=== PATIENT | female | born 1970 ===

== ENCOUNTER 2018-10-22 02:47 | Emergency (ER) | payer SELFPAY ==
[2018-10-22 02:56] VITALS: BP 98/66; BMI 28.3
[2018-10-22] MEDS ORDERED: ONDANSETRON 4 MG/2 ML VIAL IVPUSH ONE (03:27)
[2018-10-22] MEDS ORDERED: ACETAMINOPHEN 1000 MG/100 ML VIAL (NON FORMULARY) IVPB ONE (03:27)
[2018-10-22] MEDS ORDERED: ACETAMINOPHEN INJECTION 100 ML IVPB ONE (03:29)
[2018-10-22] MEDS ORDERED: ONDANSETRON 4 MG/2 ML VIAL ONE (03:29)
[2018-10-22] MEDS ORDERED: SODIUM CHLORIDE 1,000 ML IV STA (03:31)
--- NOTE | 2018-10-22 03:32 | PDOC ---
History of Present Illness - General Chief Complaint: Nausea/Vomiting Stated Complaint: FEVER/NAUSEA Time Seen by Provider: 10/22/18 02:49 - History of Present Illness Initial Comments: 10/22/18 03:31 This 48-year-old woman with a history of depression but no other significant chronic medical condition presents with a few day history of fever/vomiting/ diarrhea/nonproductive cough. Patient was seen in urgent care 2 days ago and Tamiflu was started empirically (quick strep and rapid influenza testing were both negative). Patient describes fever as high as 104.5F over the last few days, despite taking intermittent Tylenol. Patient admits that because of her frequent vomiting, the Tylenol tablets were frequently vomited. She has also had several episodes of diarrhea(no blood or mucus) per day since start of the illness. Cough has been nonproductive and mild. She has had intermittent generalized headache;no stiff neck. No history of shortness of breath or wheezing. 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) Past History - Past Medical History Allergies/Adverse Reactions: Allergies Allergy/AdvReac Type Severity Reaction Status Date / Time Penicillins Allergy Unverified 08/26/13 12:25 Sulfa (Sulfonamide Allergy Verified 10/22/18 02:49 Antibiotics) Home Medications: Ambulatory Orders Alprazolam [Xanax] 0.25 mg PO TID #15 tablet 08/26/13 Escitalopram Oxalate [Lexapro] 20 mg PO DAILY #7 tablet 08/26/13 Ondansetron [Zofran Odt -] 4 mg SL TID PRN #9 od.tablet 10/22/18 Oseltamivir Phosphate [Tamiflu] 75 mg PO BID 10/22/18 Trazodone HCl 10/22/18 COPD: No Psychiatric Problems: Yes - Suicide/Smoking/Psychosocial Hx Smoking History: Never smoked Review of Systems - Review of Systems Able to Perform ROS?: Yes Comments:: 12 point review of systems is negative except for what is noted in the history of present illness *Physical Exam - Vital Signs Last Vital Signs Temp Pulse Resp BP Pulse Ox 101 F H 112 H 18 98/66 95 10/22/18 02:52 10/22/18 02:52 10/22/18 02:52 10/22/18 02:52 10/22/18 02:52 - Physical Exam Comments: GENERAL:adult female, alert and oriented 3, in mild distress secondary to nausea/headache HEAD: Normal with no signs of trauma. EYES: PERRLA, EOMI, sclera anicteric, conjunctiva clear. ENT: Ears normal, nares patent, oropharynx clear without exudates. Dry mucous membranes. NECK: Normal range of motion, supple without lymphadenopathy, JVD, or masses. LUNGS: Breath sounds equal, clear to auscultation bilaterally. No wheezes, and no crackles. HEART:Regular rate and rhythm, normal S1 and S2 without murmur, rub or gallop. ABDOMEN:.normal bowel sounds No guarding,tenderness or rebound.No masses No distention. EXTREMITIES: Normal range of motion, no edema. No clubbing or cyanosis. No erythema, or tenderness. NEUROLOGICAL: Cranial nerves II through XII grossly intact. Normal speech. No focal neurological deficits. MUSCULOSKELETAL: Back non-tender to palpation, no CVA tenderness SKIN: Warm, Dry, normal turgor, no rashes or lesions noted. Progress Note - Progress Note Progress Note: Patient much improved after 2 L of normal saline, 1 g acetaminophen IV and 4 mg of Zofran IV. Patient states her headache is much improved, her nausea is resolved and she has no new symptoms. Patient will be discharged with instructions to continue clear liquids and advance diet very cautiously. Prescription for Zofran ODT, 4 mg to be used up to 3 times a day as needed for recurrent nausea has been sent to her pharmacy. She should return to the ER if she has any persistent vomiting or increased abdominal pain/high fever. She should follow-up with her own doctor within the next 5 days. *DC/Admit/Observation/Transfer Diagnosis at time of Disposition: Gastroenteritis - Discharge Dispostion Disposition: HOME Condition at time of disposition: Stable - Prescriptions Prescriptions: Ondansetron [Zofran Odt -] 4 mg SL TID PRN #9 od.tablet PRN Reason: Nausea - Referrals - Patient Instructions Printed Discharge Instructions: DI for Viral Gastroenteritis -- Adult Additional Instructions: Rest; clear liquids, advance diet cautiously Zofran ODT 4 mg up to 3 times a day as needed for nausea Follow-up with your doctor within the next 5 days Return to ER if you have recurrent vomiting or experience increasing abdominal pain/high fever - Post Discharge Activity
[2018-10-22 04:59] VITALS: PULSE 86; TEMP 99.3
== END 2018-10-22 05:01 | disposition home or self-care (01) ==
LOC: FER 02:47
PROC: 3E033NZ Introduction of Analgesics, Hypnotics, Sedatives into Peripheral Vein, Percutaneous Approach (ICD-10-PCS; principal; 2018-10-22)
PROC: 3E0337Z Introduction of Electrolytic and Water Balance Substance into Peripheral Vein, Percutaneous Approach (ICD-10-PCS; 2018-10-22)
PROC: 3E033GC Introduction of Other Therapeutic Substance into Peripheral Vein, Percutaneous Approach (ICD-10-PCS; 2018-10-22)
DX: K52.9 Noninfective gastroenteritis and colitis, unspecified (principal)
CPT/HCPCS: 99282-25; J0131; J7030